=== PATIENT | male | born 1950 | race Asian ===

== ENCOUNTER 2018-12-23 13:22 | Inpatient (IN) | payer MEDICARE, OTHER ==
[~2018-12-23] VITALS: Ht 167.6 cm; Wt 78.5 kg
[2018-12-23] VITALS (8 sets, daily range): BP systolic 90–137; BP diastolic 48–74
[~2018-12-23 13:22] MED LIST: PIOG30TA10 PO
--- NOTE | 2018-12-23 13:37 | NUR ---
BIBWIFE, FROM HOME, C/O DIARRHEA x 3 TODAY, NOTICED BLOOD AND FAINTED, DENIES ANY PAIN. TO ER BED 10, HOOKED TO MONITOR, CHANGED TO GOWN, PROVIDED W WARM BLANKET, AWAITING MD FIELDS. FAMILY AT BEDSIDE
[2018-12-23 14:02] LABS: BASOPHILS % (AUTO) 0.2 % (0.0-2.0); EOSINOPHILS % (AUTO) 0.3 % (0.0-6.0); HEMATOCRIT 34 % (39-51); HEMOGLOBIN 11.3 g/dL (13.5-17.5); LYMPHOCYTES % (AUTO) 10.2 % (20.0-44.0); MEAN CORPUSCULAR HGB CONC 34 g/dl (31.0-36.0); MEAN CORPUSCULAR VOLUME 87 fL (80-96); MONOCYTES # (AUTO) 0.3 /CMM (0.1-1.30); MONOCYTES % (AUTO) 3.5 % (2.0-12.0); NEUTROPHILS # (AUTO) 8.6 /CMM (1.8-8.9); NEUTROPHILS % (AUTO) 85.8 % (43.0-81.0); PLATELET COUNT (AUTO) 178 /CMM (150-450); RED BLOOD CELL COUNT(AUTO) 3.88 MIL/uL (4.5-6.0); WHITE BLOOD COUNT (AUTO) 10.1 K/uL (4.3-11.0)
[2018-12-23 14:10] LABS: CALCIUM, SERUM 8.4 mg/dL (8.5-10.1); CREATININE 1.1 mg/dL (0.6-1.3); POTASSIUM 3.9 mmol/L (3.5-5.1)
--- NOTE | 2018-12-23 14:10 | NUR ---
DR CARY AT BEDSIDE FOR EVAL.
--- NOTE | 2018-12-23 14:22 | NUR ---
PT WENT TO RESTROOM, AMBULATORY, FELT DIZZY, FELL ONTO GROUND ON HIS KNEES, WAS ABLE TO HOLD PATIENT FROM HIS BACK, - HEAD TRAUMA, NOTED WITH LARGE AMOUNT OF RECTAL BLEEDING, TECH BROUGHT BACK PATIENT INTO BED. IMEEDIATELY STARTED IVP ON LAC 18G, FLUIDS AND ZOFRAN 4MG IVP ADMINISTERED ORDERED.
[2018-12-23] MEDS ORDERED: ONDANSETRON HCL/PF 4 MG/2 ML VIAL IVP ONE (14:30)
[2018-12-23] MEDS ORDERED: IV NS 0.9% 1,000 ML BAG IV ONE ×3 (14:30)
[2018-12-23] MEDS ORDERED: ONDANSETRON HCL/PF 4 MG/2 ML VIAL ONE (14:31)
[2018-12-23 14:36] LABS: ALBUMIN 3.3 g/dL (3.4-5.0); BILIRUBIN,DIRECT 0.2 mg/dL (0.0-0.2); BILIRUBIN,TOTAL 0.7 mg/dL (0.2-1.0); TOTAL PROTEIN, SERUM 6.3 g/dL (6.4-8.2)
[2018-12-23] MEDS ORDERED: SILD50TA PO (14:44)
[2018-12-23] MEDS ORDERED: DONE10TA44 PO (14:44)
--- NOTE | 2018-12-23 15:28 | NUR ---
WHEELED OUT VIA [facility] FOR CT SCAN.
--- NOTE | 2018-12-23 16:20 | NUR ---
CALLED FOR ICU BED
--- NOTE | 2018-12-23 18:03 | NUR ---
REPORT GIVEN TO SPENCER MENDEZ OF ICU
--- NOTE | 2018-12-23 18:12 | NUR ---
RECEIVED TELEPHONE ORDERS FROM DR SCHULTZ. NOTED. ENDORSED TO ICU NURSE PARUL
--- NOTE | 2018-12-23 18:20 | NUR ---
ICU/RN: Pt received from ER via [facility], blood soaked sheets and pants noted with clots. Pt VSS, ST with BBBs on monitor. Pt denies dizziness, neurological symptoms, history of GIB. Oriented pt to unit; urinal provided. Pt currently wearing dentures. Call light within reach.
[2018-12-23] MEDS: IV D5/ 0.9% NACL 1,000 ML IV PRN (19:27)
--- NOTE | 2018-12-23 19:30 | NUR ---
ICU/RN: REPORT ENDORSED TO NIGHT NURSE FOR MARCY. ALL NEEDS ATTENDED TO, SAFETY MEASURES TAKEN. BED IN LOW POSITION, SIDE RAILS UP, CALL LIGHT WITHIN REACH.
--- NOTE | 2018-12-23 19:30 | NUR ---
CASINO INVESTIGATOR NOTE RECEIVED PT AWAKE AND ALERT. ABLE TO VERBALIZE NEEDS. ON 2L OF O2 VIA NC AND SATURATING WELL. BREATHING REGULAR AND UNLABORED. NO C/O PAIN OR DISCOMFORT NOTED. NO BLEEDING NOTED AT THIS TIME. PT TO REMAIN NPO EXCEPT FOR ICE CHIPS. TELE-SR. IVS IN PLACE CLEAN, PATENT AND FLUSHING WELL. CALL LIGHT WITHIN REACH. WILL MONITOR.
[2018-12-23] MEDS ORDERED: PEG 3350/NA SULF,BICARB,CL/KCL 4,000 ML BOTTLE PO ONE (21:00)
[2018-12-23] MEDS: NEXIUM 40 MG VIAL IV SCH (21:04)
--- NOTE | 2018-12-23 21:30 | NUR ---
TAR KETTLE RUNNER NOTE RECEIVED CONSENT FOR COLONOSCOPY/EGD/ANESTHESIA BY PT. NOTIFIED FLORENCIO OF PROCEDURE PER PT REQUEST. STARTED PT ON GOLYTELY.
[2018-12-23] MEDS ORDERED: PEG 3350/NA SULF,BICARB,CL/KCL 4,000 ML BOTTLE ONE (21:39)
[2018-12-23 22:51] LABS: HEMOGLOBIN 8.3 g/dL (13.5-17.5)
--- NOTE | 2018-12-23 23:59 | NUR ---
STAFFING AND SCHEDULING COORDINATOR NOTE NOTIFIED DR SCHULTZ H/H 8.08/12. WITH ORDERS TO TRANSFUSE 1 UNIT PRBC. CONSENT OBTAINED ORDERS NOTED AND CARRIED OUT.
[2018-12-24] VITALS (27 sets, daily range): BP systolic 89–129; BP diastolic 39–68
[2018-12-24] MEDS: IV D5/ 0.9% NACL 1,000 ML IV PRN (04:34)
[2018-12-24] MEDS ORDERED: SORBITOL SOLUTION 30 ML PO ONE (06:00)
[2018-12-24 06:34] LABS: BASOPHILS # (AUTO) 0.1 /CMM (0.0-0.2); BASOPHILS % (AUTO) 0.5 % (0.0-2.0); EOSINOPHILS % (AUTO) 0.4 % (0.0-6.0); HEMATOCRIT 27 % (39-51); HEMOGLOBIN 9.2 g/dL (13.5-17.5); MEAN CORPUSCULAR HGB CONC 34 g/dl (31.0-36.0); MEAN CORPUSCULAR VOLUME 87 fL (80-96); MONOCYTES # (AUTO) 0.6 /CMM (0.1-1.30); MONOCYTES % (AUTO) 5.7 % (2.0-12.0); NEUTROPHILS # (AUTO) 9.1 /CMM (1.8-8.9); NEUTROPHILS % (AUTO) 84.4 % (43.0-81.0); PLATELET COUNT (AUTO) 129 /CMM (150-450); RED BLOOD CELL COUNT(AUTO) 3.09 MIL/uL (4.5-6.0); WHITE BLOOD COUNT (AUTO) 10.8 K/uL (4.3-11.0)
[2018-12-24 07:09] LABS: CALCIUM, SERUM 7.6 mg/dL (8.5-10.1); CREATININE 0.9 mg/dL (0.6-1.3); POTASSIUM 3.4 mmol/L (3.5-5.1)
--- NOTE | 2018-12-24 07:55 | NUR ---
ICU/RN OFF TO OR - EGD & COLONOSCOPY PT SEEN & EXAMINED BY DR. VILLAVICENCIO AND OR STAFF CAME TO PICK-UP PT FOR EGD AND COLOSCOPY PROCEDURE IN STABLE CONDITION.
[2018-12-24] MEDS ORDERED: ANESTHESIA TRAY IN PYXIS 1 EA TRAY MC ONE (07:57)
--- NOTE | 2018-12-24 09:18 | NUR ---
ICU/RN BACK TO ICU PT RETURNED TO ICU VIA BED IN STABLE CONDITION. PER OR NURSE NO ACTIVE FOUND. PT'S AT BEDSIDE, DR. TIDWELL TEXT TO CALL ICU TO SPEAK TO PT'S . DR. VILLAVICENCIO NOTIFIED OF PT'S RETURN ORDERED TO RESUME DIET, NOTED AND CARRIED.
[2018-12-24] MEDS: NEXIUM 40 MG VIAL IV SCH (09:27)
[2018-12-24] MEDS: POTASSIUM CL. PREMIX PERIPHER. 50 ML IV SCH ×6 (09:28→16:10)
--- NOTE | 2018-12-24 11:00 | NUR ---
ICU/RN NO ACTIVE BLEEDING PT HAS 2 BM NOTED NO ACTIVE BLEEDING, RESTING COMFORTABLY WITH AT BEDSIDE. MONITORING CONTINUED.
--- NOTE | 2018-12-24 12:18 | NUR ---
ICU/RN ROUNDS - DR. SALGUERO PT SEEN & EXAMINED BY DR. SALGUERO. NO NEW ORDER RECEIVED. ON GOING MONITORING.
[2018-12-24 13:16] LABS: THYROID STIMULATING HORMONE 0.199 uIU/mL (0.358-3.74)
[2018-12-24 13:34] LABS: MAGNESIUM 1.4 mg/dL (1.8-2.4); PHOSPHORUS 1.8 mg/dL (2.5-4.9)
--- NOTE | 2018-12-24 16:50 | NUR ---
DECKHANDFEATHEREDGER AND REDUCER MACHINE FROM ICU PT ARRIVED TO TELE UNIT IN STABLE CONDITION, RECEIVED REPORT FROM VANESSA CASTILLO FROM ICU. PT IS A/O X2, AFEBRILE. RESPIRATIONS ARE EVEN AND UNLABORED, NOT IN ANY ACUTE DISTRESS NOTED. PT DENIES ANY PAIN AT THIS TIME, NO S/O SOB, N/V. PUPILS ARE REACTIVE TO LIGHT, BILATERAL HAND SOLAR ELECTRIC INSTALLER ARE STRONG AND EQUAL. ABDOMEN IS SOFT AND NONDISTENDED, BOWEL SOUNDS ARE PRESENT IN ALL 4 QUADRANTS UPON AUSCULTATION. DENIES ANY BLADDER DISCOMFORT. IV ACCESS TO LAC G22 INTACT, NO INFILTRATION NOTED. DRESSING KEPT CLEAN AND DRY. AT BEDSIDE. SAFETY MEASURES ARE IN PLACE. INSTRUCTED PT TO USE CALL LIGHT WHEN ASSISTANCE IS NEEDED, CALL LIGHT IS LEFT WITHIN REACH. WILL MONITOR THROUGHOUT SHIFT FOR CONTINUITY OF CARE.
--- NOTE | 2018-12-24 16:55 | NUR ---
ICU/TUBING TESTER OF CARE PT LEFT ICU VIA IN STABLE CONDITION WHEELCHAIR DOWNGRADED TO TELEMETRY, ROOM 324#2, PT ENDORSED TO TELE NURSE DEMARCUS TO CONTINUE CARE.
--- NOTE | 2018-12-24 17:30 | NUR ---
APPLIANCE REPAIR TECHNICIAN NOTES-- CALLED DR. VILLAVICENCIO TO RELAY MG AND PHOS RESULTS. WAITING A CALL BACK.
--- NOTE | 2018-12-24 17:57 | NUR ---
DIRECTOR OF COMMUNICATIONS NOTES-- RECEIVED A CALL BACK FROM DR. VILLAVICENCIO W/ ORDERS TO CONTINUE ARICEPT AND ACTOS, NEW ORDERS FOR NEUTROPHOS 1 PACKET BID X1 DAY, MAGNESIUM OXIDE 400MG PO X1. READ BACK AND VERIFIED, NOTED AND CARRIED OUT.
[2018-12-24] MEDS ORDERED: NEUTRA PHOS 1 POWD.PACKET PO ONE (18:00)
[2018-12-24] MEDS ORDERED: MAGNESIUM OXIDE 400 MG TABLET PO ONE (18:00)
[2018-12-24] MEDS: PIOGLITAZONE HCL 15 MG TABLET PO SCH (18:22)
[2018-12-24] MEDS: DONEPEZIL 5 MG TABLET PO SCH (18:22)
--- NOTE | 2018-12-24 18:39 | NUR ---
MOTORCYCLE MECHANIC APPRENTICE CLOSING NOTES ALL DUE MEDS GIVEN, NEEDS MET AND RENDERED. PT IS A/O X2, AFEBRILE. RESPIRATIONS ARE EVEN AND UNLABORED, NOT IN ANY ACUTE DISTRESS NOTED. DENIES ANY PAIN, SOB, N/V. IV SITE TO RAC G22 INTACT, NO INFILTRATION NOTED. DRESSING KEPT CLEAN AND DRY. AT BEDSIDE. PT HAD A BM WITH NO BLEEDING. ATE DINNER 100%. SAFETY MEASURES ARE IN PLACE. REMINDED PT TO USE CALL LIGHT WHEN ASSISTANCE IS NEEDED, CALL LIGHT IS LEFT WITHIN REACH.
--- NOTE | 2018-12-24 20:00 | NUR ---
MS MENDEZ NOTES RECEIVED PATIENT AWAKE AND CALM IN BED WITH NO DISTRESS NOTED. CALL LIGHT WITHIN REACH. SITTER AT BEDSIDE. NO C/O PAIN OR DISCOMFORT. PERIPHERAL LINE INTACT AND PATENT. BED IN LOW LOCK SETTING. ALL BELONGINGS KEPT NEAR BEDSIDE. WILL CONTINUE TO MONITOR. Addendum: 12/25/18 at 0622 by JOANN SHANKAR RN *TONA MENDEZ NOTES
[2018-12-24] MEDS: PANTOPRAZOLE 40 MG TABLET.DR PO SCH (20:34)
[2018-12-24] MEDS ORDERED: DONEPEZIL 5 MG TABLET PO SCH (22:00)
[2018-12-25] VITALS: BP 100/67
[2018-12-25 04:46] VITALS: BP 117/65
--- NOTE | 2018-12-25 06:16 | NUR ---
MS MENDEZ NOTES PATIENT ASLEEP IN BED WITH NO DISTRESS NOTED. CALL LIGHT WITHIN REACH. ALL DUE MEDS GIVEN ORDERED WITH NO ASE. NO C/O PAIN OF DISCOMFORT. PERIPHERAL LINE INTACT AND PATENT. PATIENT CALM AND COOPERATIVE WITH NURSING CARE DURING SHIFT. BED IN LOW LOCK SETTING. ALL BELONGINGS KEPT NEAR BEDSIDE. WILL ENDORSE TO ONCOMING SHIFT. Addendum: 12/25/18 at 0622 by JOANN SHANKAR RN *TONA MENDEZ NOTES
[2018-12-25 06:27] LABS: BASOPHILS % (AUTO) 0.5 % (0.0-2.0); EOSINOPHILS % (AUTO) 0.7 % (0.0-6.0); HEMATOCRIT 24 % (39-51); HEMOGLOBIN 8.2 g/dL (13.5-17.5); LYMPHOCYTES # (AUTO) 1.3 /CMM (0.8-4.8); LYMPHOCYTES % (AUTO) 19.8 % (20.0-44.0); MEAN CORPUSCULAR HGB CONC 34 g/dl (31.0-36.0); MEAN CORPUSCULAR VOLUME 87 fL (80-96); MONOCYTES # (AUTO) 0.4 /CMM (0.1-1.30); NEUTROPHILS # (AUTO) 4.6 /CMM (1.8-8.9); PLATELET COUNT (AUTO) 115 /CMM (150-450); WHITE BLOOD COUNT (AUTO) 6.4 K/uL (4.3-11.0)
[2018-12-25 06:46] LABS: ALBUMIN 2.8 g/dL (3.4-5.0); BILIRUBIN,TOTAL 1.1 mg/dL (0.2-1.0); CREATININE 0.9 mg/dL (0.6-1.3); MAGNESIUM 1.6 mg/dL (1.8-2.4); PHOSPHORUS 1.6 mg/dL (2.5-4.9); POTASSIUM 3.4 mmol/L (3.5-5.1); TOTAL PROTEIN, SERUM 5.4 g/dL (6.4-8.2)
--- NOTE | 2018-12-25 07:34 | NUR ---
COMPETITIVE INTELLIGENCE MANAGER OPENING NOTES RECEIVED PATIENT SITTING IN BED. PATIENT IN NO ACUTE DISTRESS. NO SOB NOTED. PATIENT BREATHING IS EVEN AND UNLABORED. PATIENT MAINTAINED ON A 1:1 SITTER. PATIENT ON CARDIAC MONITORING, SINUS TACHYCARDIA 100. SAFETY PRECAUTIONS IN PLACE. PATIENT BED IS LOCKED AND IN LOWEST POSITION. CALL LIGHT WITHIN REACH. WILL CONTINUE TO MONITOR.
[2018-12-25 08:00] VITALS: BP 98/70
[2018-12-25] MEDS ORDERED: NEUTRA PHOS 1 POWD.PACKET PO SCH (08:00)
[2018-12-25] MEDS ORDERED: POTASSIUM CHLORIDE 20 MEQ TAB.PRT.SR PO SCH (08:30)
[2018-12-25] MEDS: Magnesium 1GM/D5W 100ML PREMIX 100 ML IV SCH ×2 (08:56→10:26)
[2018-12-25] MEDS: DONEPEZIL 5 MG TABLET PO SCH (08:56)
[2018-12-25] MEDS: PANTOPRAZOLE 40 MG TABLET.DR PO SCH (08:56)
[2018-12-25] MEDS: PIOGLITAZONE HCL 15 MG TABLET PO SCH (08:59)
[2018-12-25] MEDS ORDERED: DONEPEZIL 5 MG TABLET PO SCH (09:00)
[2018-12-25] MEDS ORDERED: K PHOS NEUTRAL 250 MG TABLET PO SCH ×2 (09:00)
[2018-12-25] MEDS ORDERED: PIOGLITAZONE HCL 15 MG TABLET PO SCH (09:00)
[2018-12-25] MEDS ORDERED: MAGNESIUM OXIDE 400 MG TABLET PO SCH (09:00)
[2018-12-25] MEDS ORDERED: NEUTRA PHOS 1 POWD.PACKET PO ONE (09:00)
--- NOTE | 2018-12-25 17:00 | NUR ---
MS MAINTENANCE REPAIRER NOTE PATIENT MEDICALLY STABLE. PATIENT VITAL SIGNS WNL. PATIENT BREATHING IS EVEN AND UNLABORED. PATIENT BREATHING ON ROOM AIR SATURATING >95% SPO2. PATIENT IN NO ACUTE DISTRESS. NO SOB NOTED. PATIENT'S WAS ABLE TO SPEAK TO DR. VILLAVICENCIO AND VERBALIZES UNDERSTANDING FROM DOCTOR ABOUT DISCHARGE. PROVIDED DC INSTRUCTIONS TO PATIENT AND . PATIENT AND VERBALIZE UNDERSTANDING. PATIENT IV REMOVED. ID BAND REMOVED. PATIENT SKIN ASSESSED. NO WOUNDS INSPECTED. NO NEW SKIN BREAKDOWN NOTED. PATIENT HAS ALL BELONGINGS WITH HIM AND . PATIENT SIGNED BELONGINGS LIST AND IN CHART. PATIENT GOING BACK HOME BY CAR WITH . ALL NURSING NEEDS MET. PATIENT KEPT CLEAN, DRY, REPOSITIONED, AND COMFORTABLE THROUGHOUT SHIFT. MD MADE AWARE OF DISCHARGE.
[2018-12-26] MEDS ORDERED: CT SWABBABLE VALVE TRANS SET 1 EA INFUS.SET MC ONE (13:38)
[2018-12-26] MEDS ORDERED: IV NS 0.9% 250 ML IV ONE (13:38)
[2018-12-26] MEDS ORDERED: IOHEXOL-300 100 ML VIAL IV ONE (13:38)
== END 2018-12-25 17:12 | disposition home or self-care (01) | DRG 392 ==
LOC: ER 13:23 → ICU 17:21 → TELE 12-24 16:30 → MED 12-25 11:48
PROVIDERS: ADMIT Internal Medicine; ATTEND Internal Medicine
PROC: 30233N1 Transfusion of Nonautologous Red Blood Cells into Peripheral Vein, Percutaneous Approach (ICD-10-PCS; 2018-12-23)
PROC: 0DJD8ZZ Inspection of Lower Intestinal Tract, Via Natural or Artificial Opening Endoscopic (ICD-10-PCS; principal; 2018-12-24)
PROC: 0DJD8ZZ Inspection of Lower Intestinal Tract, Via Natural or Artificial Opening Endoscopic (ICD-10-PCS; 2018-12-24)
DX: K57.30 Diverticulosis of large intestine without perforation or abscess without bleeding (principal); D62 Acute posthemorrhagic anemia; J98.11 Atelectasis; K64.8 Other hemorrhoids; G30.9 Alzheimer's disease, unspecified; F02.80 Dementia in other diseases classified elsewhere, unspecified severity, without behavioral disturbance, psychotic disturbance, mood disturbance, and anxiety; D64.9 Anemia, unspecified; E11.9 Type 2 diabetes mellitus without complications; Z79.84 Long term (current) use of oral hypoglycemic drugs; F32.9 Major depressive disorder, single episode, unspecified; Z79.899 Other long term (current) drug therapy; K44.9 Diaphragmatic hernia without obstruction or gangrene; Q40.3 Congenital malformation of stomach, unspecified; K21.0 Gastro-esophageal reflux disease with esophagitis
CPT/HCPCS: 36415; 71045-TC; 80048-TC; 80053-TC; 80061-TC; 80076-TC; 82728-TC; 82962-TC; 83540-TC; 83690-TC; 83735-TC; 84100-TC; 84439-TC; 84443-TC; 85025-TC; 85027-TC; 85730-TC; 86850-TC; 86921-TC; 87081-TC; 93307-TC; 93880-TC; A4570; A6403; G0378; J2405; J2704; J3475; J3480; J3490; J7030; J7042; J7050; P9016-BL; Q9967

== ENCOUNTER 2018-12-25 18:24 | Inpatient (IN) | payer OTHER ==
[~2018-12-25] VITALS: Ht 167.6 cm; Wt 78.5 kg
[~2018-12-25 18:24] MED LIST changes: +DONE10TA44 PO; +SILD50TA PO
[2018-12-25 18:59] LABS: BASOPHILS # (AUTO) 0.1 /CMM (0.0-0.2); BASOPHILS % (AUTO) 0.7 % (0.0-2.0); EOSINOPHILS % (AUTO) 1.2 % (0.0-6.0); HEMATOCRIT 24 % (39-51); HEMOGLOBIN 8.1 g/dL (13.5-17.5); LYMPHOCYTES # (AUTO) 2.3 /CMM (0.8-4.8); LYMPHOCYTES % (AUTO) 27.8 % (20.0-44.0); MEAN CORPUSCULAR HGB CONC 34 g/dl (31.0-36.0); MEAN CORPUSCULAR VOLUME 88 fL (80-96); MONOCYTES # (AUTO) 0.6 /CMM (0.1-1.30); MONOCYTES % (AUTO) 7.2 % (2.0-12.0); NEUTROPHILS # (AUTO) 5.2 /CMM (1.8-8.9); NEUTROPHILS % (AUTO) 63.1 % (43.0-81.0); PLATELET COUNT (AUTO) 170 /CMM (150-450); RED BLOOD CELL COUNT(AUTO) 2.72 MIL/uL (4.5-6.0); WHITE BLOOD COUNT (AUTO) 8.3 K/uL (4.3-11.0)
[2018-12-25] MEDS ORDERED: IV NS 0.9% 1,000 ML BAG IV ONE (19:00)
--- NOTE | 2018-12-25 19:02 | NUR ---
WEAK AND DIZZY, BLOOD IN STOOL NOTED X 2. D/C'D EARLIER. C/O RECTAL PAIN. PT AAOX4, VSS. RR EVEN & UNLABORED. DENIES CP, SOB @ THIS TIME. SEEN & EVAL'D BY DR. CARY. WILL CONT TO MONITOR.
[2018-12-25 19:08] LABS: CALCIUM, SERUM 7.9 mg/dL (8.5-10.1); POTASSIUM 3.3 mmol/L (3.5-5.1)
[2018-12-25] MEDS ORDERED: ONDANSETRON HCL/PF 4 MG/2 ML VIAL IVP ONE (19:30)
[2018-12-25] MEDS ORDERED: MORPHINE SULFATE INJ 2 MG/ML DISP.SYRIN IV ONE (19:30)
[2018-12-25] MEDS ORDERED: ONDANSETRON HCL/PF 4 MG/2 ML VIAL ONE (19:49)
[2018-12-25] MEDS ORDERED: MORPHINE SULFATE INJ 2 MG/ML DISP.SYRIN ONE (19:49)
--- NOTE | 2018-12-25 19:56 | NUR ---
PT RESTING COMFORTABLY. REFUSED PAIN/NAUSEA MED, ERMD AWARE. DENIES CP, SOB, DIZZINESS, ABD PAIN, NAUSEA @ THIS TIME. WILL CONT TO MONITOR.
[2018-12-25] MEDS ORDERED: POTASSIUM CHLORIDE 20 MEQ TAB.PRT.SR PO ONE ×2 (21:30→23:48)
[2018-12-25] MEDS ORDERED: HYDROCODONE/APAP 5/325MG 1 EACH TABLET PO PRN (21:30)
[2018-12-25] MEDS ORDERED: MAG HYDROX/AL HYDROX/SIMETH 30 ML UDC PO PRN (21:30)
[2018-12-25] MEDS ORDERED: ONDANSETRON HCL/PF 4 MG/2 ML VIAL IVP PRN (21:30)
[2018-12-25] MEDS ORDERED: MAGNESIUM HYDROXIDE 30 ML UDC PO PRN (21:30)
[2018-12-25] MEDS ORDERED: ZOLPIDEM TARTRATE 5 MG TABLET PO PRN (21:30)
[2018-12-25] MEDS ORDERED: ACETAMINOPHEN 325 MG TABLET PO PRN (21:30)
[2018-12-25] MEDS ORDERED: Z GUARD REMEDY 2 OZ OINT TP PRN (21:30)
--- NOTE | 2018-12-25 21:39 | NUR ---
REPORT GIVEN TO VANESSA MIRELES FOR MARCY.
--- NOTE | 2018-12-25 22:03 | NUR ---
PLASTIC BUBBLE PACKER ADMISSION NOTES NOTES RECEIVED PATIENT FROM ER. DX. GI BLEED; ANEMIA. WAS DISCHARGED TODAY AT 5:30PM. PATIENT IS ALERT AND ORIENTED X3, VERBALLY RESPONSIVE, ABLE TO MAKE NEEDS KNOWN. BELARUSIAN SPEAKER BUT CAN UNDERSTAND KHMER. FAMILY IS AT BEDSIDE. BREATHING EVEN AND UNLABORED. NO SOB NOTED. TOLERATING ROOM AIR. CURRENTLY WITH NO COMPLAINTS OF PAIN OR DISCOMFORT. IV ON LEFT AC INTACT AND PATENT. SKIN DRY AND WARM TO TOUCH. AFEBRILE. SKIN ASSESSMENT RENDERED WITH NO SKIN ISSUES FOUND. ORIENTED TO THE USE OF UNIT AMENITIES. INSTRUCTED ON THE USE OF CALL LIGHT. URINAL PROVIDED AT BEDSIDE. BELONGINGS ACCOUNTED FOR. ALL OTHER NEEDS ATTENDED TO. SAFETY MEASURES IN PLACE. CALL LIGHT WITHIN REACH. WILL CONTINUE TO MONITOR. Addendum: 12/26/18 at 0031 by [facility] RN SR-ST ON TELE MONITOR WITH HIGHEST RATE 107.
[2018-12-25 22:15] VITALS: BP 115/68
[2018-12-25] MEDS: IV D5/0.45 NACL 1,000 ML IV PRN (22:45)
--- NOTE | 2018-12-25 23:43 | NUR ---
SHERIFF DEPUTY NOTES PER DR. OBINNA RESENDIZ (ENGRAVER BLOCK FOR DR. SALTER), CONTINUE ALL ADMISSION ORDERS MADE BY DR. COLLINS AND PATIENT OK TO BE NPO EXCEPT MEDS. ORDER NOTED AND CARRIED OUT. WILL CONTINUE TO MONITOR.
[2018-12-26] VITALS (25 sets, daily range): BP systolic 90–137; BP diastolic 52–101
--- NOTE | 2018-12-26 00:10 | NUR ---
RN NOTES PATIENT LATEST HGB 7.9 AND HEMATOCRIT 24, NO ACTIVE BLEEDING AT THIS TIME. WILL CHECKED THE NEXT H/H TODAY.
--- NOTE | 2018-12-26 03:29 | NUR ---
THROUGH FREIGHT ENGINEER NOTES PATIENT RESTING IN BED. DENIES ANY PAIN. DENIES N/V. DENIES DIZZINESS. SR ON TELE MONITOR. WILL CONTINUE TO MONITOR.
--- NOTE | 2018-12-26 06:49 | NUR ---
PROJECT ENGINEER CHEMICALS CLOSING NOTES PATIENT RESTING IN BED. NO ACUTE CHANGES THROUGHOUT SHIFT. NO ACTIVE BLEEDING NOTED. NO BM. NO BLOOD IN URINE EITHER. DENIES PAIN OR DISCOMFORT. BREATHING EVEN AND UNLABORED. NO SOB NOTED. SR ON TELE MONITOR. TOLERATING ROOM AIR. IV ON LEFT AC INTACT AND PATENT WITH IVF INFUSING. ALL OTHER NEEDS ATTENDED TO. SAFETY MEASURES IN PLACE. CALL LIGHT WITHIN REACH. WILL ENDORSE TO ONCOMING NURSE FOR MARCY.
--- NOTE | 2018-12-26 07:10 | NUR ---
MS RN NOTES PATIENT IN BED EYES CLOSED, EASY TO AROUSE. RESPOND TO VERBAL AND TACTILE STIMULI. NO ACUTE DISTRESS NOTED. BREATHING UNLABORED. NO SOB NOTED. IV ACCESS PATENT AND INTACT, NO REDNESS OR SWELLING NOTED. SAFETY MEASURES IN PLACE. CALL LIGHT WITHIN REACH. WILL CONTINUE TO MONITOR ACCORDINGLY.
[2018-12-26 07:37] LABS: BASOPHILS % (AUTO) 0.5 % (0.0-2.0); EOSINOPHILS % (AUTO) 1.6 % (0.0-6.0); LYMPHOCYTES # (AUTO) 1.6 /CMM (0.8-4.8); LYMPHOCYTES % (AUTO) 27.4 % (20.0-44.0); MEAN CORPUSCULAR HGB CONC 34 g/dl (31.0-36.0); MEAN CORPUSCULAR VOLUME 87 fL (80-96); MONOCYTES # (AUTO) 0.4 /CMM (0.1-1.30); NEUTROPHILS # (AUTO) 3.7 /CMM (1.8-8.9); NEUTROPHILS % (AUTO) 63.5 % (43.0-81.0); PLATELET COUNT (AUTO) 111 /CMM (150-450); WHITE BLOOD COUNT (AUTO) 5.8 K/uL (4.3-11.0)
[2018-12-26 08:32] LABS: RED BLOOD CELL COUNT(AUTO) 1.99 MIL/uL (4.5-6.0)
[2018-12-26 08:36] LABS: HEMATOCRIT 17 % (39-51); HEMOGLOBIN 5.9 g/dL (13.5-17.5)
--- NOTE | 2018-12-26 09:29 | NUR ---
COMPLIANCE REPRESENTATIVE NOTES RECEIVED NEW ORDERS FROM DR PRAVIN VILLAVICENCIO TO GIVE 1 UNIT PRBC THEN RECHECK HGB /HCT 1 HOUR AFTER ADMINISTRATION , THEN GIVE ANOTHER 1 UNIT PRBC AND RECHECK HGB /HCT 1 HOUR AFTER ADMINISTRATION.
[2018-12-26 09:38] LABS: CALCIUM, SERUM 7.5 mg/dL (8.5-10.1); CREATININE 0.8 mg/dL (0.6-1.3); PHOSPHORUS 1.8 mg/dL (2.5-4.9)
[2018-12-26 09:39] LABS: BAND % (MANUAL) 3 % (0.0-5.0); EOSINOPHILS % (MANUAL) 3 % (0-4); LYMPHOCYTES % (MANUAL) 27 % (16-48); MONOCYTES % (MANUAL) 7 % (0-11.0); NEUTROPHILS % (MANUAL) 60 (42-76)
[2018-12-26] MEDS: NEXIUM 40 MG VIAL IV SCH (09:55)
[2018-12-26 10:00] LABS: POTASSIUM 3.7 mmol/L (3.5-5.1)
--- NOTE | 2018-12-26 10:00 | NUR ---
REAL ESTATE TRANSACTION COORDINATOR NOTES FOLLOWED UP WITH LABORATORY REGARDING BLOOD, SAID STILL BEING PREPARED AND WILL CALL ONCE BLOOD IS AVALABLE.
[2018-12-26] MEDS ORDERED: Sodium Phosphate 7.5 MMOL in IV D5W 100 ML IV ONE (12:00)
--- NOTE | 2018-12-26 12:24 | NUR ---
MS RN NOTES SEEN AND EVALUATED BY DR PRAVIN VILLAVICENCIO SPOKE WITH AND DAUGHTER AT BEDSIDE. MD AWARE OF HOME MEDICATIONS RECONCILIATION NEEDS TO BE REVIEWED, MD SAID HE'S NOT ORDERING PATIENT'S HOME MEDICATIONS AT THIS TIME.
--- NOTE | 2018-12-26 13:32 | NUR ---
CLINICAL STAFF ANESTHESIOLOGIST NOTES CLARIFIED CT ABDOMEN PELVIS WITHOUT CONTRAST ORDER WITH DR PRAVIN VILLAVICENCIO WITH ORDERS TO CHANGE PREVIOUS ORDER TO CT ABDOMEN PELVIS WITH AND WITHOUT CONTRAST, NOTED AND CARRIED OUT.
--- NOTE | 2018-12-26 13:38 | NUR ---
TOWER OPERATOR NOTES PATIENT TRANSPORTED FOR CT TAKEN BY RIMMA IN STABLE CONDITION , VITAL SIGNS WITHIN NORMAL LIMITS.
--- NOTE | 2018-12-26 14:40 | NUR ---
GINGER FARMER NOTES PATIENT CAME BACK TO THE UNIT FROM CT IN STABLE CONDITION. NO ACUTE DISTRESS NOTED. BREATHING UNLABORED.
--- NOTE | 2018-12-26 15:04 | NUR ---
RESEARCH ENGINEER NOTES STARTED BLOOD TRANSFUSION, PATIENT WITH STABLE VITAL SIGNS. WILL CONTINUE TO MONITOR PATIENT.
--- NOTE | 2018-12-26 15:19 | NUR ---
SINKER PULLER NOTES PATIENT WITH STABLE VITAL SIGNS, NO ACUTE DISTRESS NOTED. NO ADVERSE REACTION TO BLOOD TRANSFUSION NOTED. WILL CONTINUE TO MONITOR PATIENT.
--- NOTE | 2018-12-26 16:00 | NUR ---
MS RN NOTES PATIENT SEEN BY DR PRAVIN VILLAVICENCIO AGAIN, AT BEDSIDE. MD AWARE OF CT RESULT.
--- NOTE | 2018-12-26 16:04 | NUR ---
CLINICAL RN LIAISON NOTES BLOOD TRANSFUSION ON GOING. PATIENT WITH STABLE VITAL SIGNS, NO ACUTE DISTRESS NOTED. NO ADVERSE REACTION TO BLOOD TRANSFUSION NOTED. WILL CONTINUE TO MONITOR PATIENT.
--- NOTE | 2018-12-26 16:32 | NUR ---
RESIDENTIAL SALES NOTES SEEN AND EVALUATED BY DR TIDWELL WITH ORDERS TO GIVE 2 UNITS PRBC TOTAL AND CHECK HGB/ HCT 1 HOUR AFTER
--- NOTE | 2018-12-26 17:10 | NUR ---
SILK SCREEN LAYOUT DRAFTER NOTES PATIENT NOTED WITH ELAVATED PULSE RATE AND COMPLAINT OF ABDOMINAL CRAMPS AND REQUESTED TO GO TO THE BATHROOM. BEDPAN WAS PLACED , PATIENT HAD A BOWEL MOVEMENT AND NOTED FRESH BLOODY STOOL. NOTIFIED DR TIDWELL AND AND DR PRAVIN STRICKLAND MADE AWARE. PER DR MORE IF NOTED ANOTHER BLOOD STOOL ,TRANSFER PATIENT TO ICU.
--- NOTE | 2018-12-26 17:15 | NUR ---
HEAD CLEANING PORTER NOTES PATIENT SAID HE NEEDS TO GO TO THE BATHROOM AGAIN, PLACED BED GLOVER AND NOTED ANOTHER BLOODY STOOL. PATIENT WITH STABLE VITAL SIGNS. BREATHING UNLABORED NO SOB NOTED.
--- NOTE | 2018-12-26 17:20 | NUR ---
PREVENTIVE MAINTENANCE COORDINATOR NOTES PATIENT TRANSFER TO ICU ROOM 260 VIA ACLS PROTOCOL WITH STABLE VITAL SIGNS. REPORT GIVEN TO EDWIGE AT BEDSIDE. ALERT ORIENTED X 3. BREATHING UNLABORED. NO SOB NOTED. WITH ON GOING BLOOD TRANSFUSION. ALL BELONGINGS TRANSFER WITH THE PATIENT. AT BEDSIDE.
--- NOTE | 2018-12-26 17:45 | NUR ---
PATIENT TRANSFERRED FROM TELE FLOOR SECONDARY TO ACTIVE LGIB. WITH ONGOING 1ST UNIT OF PRBC UPON TRANSFER. PATIENT AWAKE/ALERT/ORIENTED FOLLOWING SIMPLE COMMANDS. NO ACUTE DISTRESS NOTED. NOTED WITH BLOODY STOOLS UPON TRANSFER. BP STABLE AT THIS TIME.
--- NOTE | 2018-12-26 19:15 | NUR ---
IST UNIT PRBC COMPLETED. NO A/R NOTED.
--- NOTE | 2018-12-26 19:30 | NUR ---
ONGOING 2ND UNIT OF PRBC. NO FURTHER BLOODY STOOLS NOTED AT THIS TIME. ATTEMPTED TO INSERT PIV-WITH POOR VENOUS ACCESS. MIDLINE PER .
--- NOTE | 2018-12-26 19:50 | NUR ---
RN NOTES RECEIVED PT AWAKE ALERT ORIENTED X 3 ON BED WITH ONGOING 2 UNIT PRBC / BLOOD TRANSFUSION. NO ACUTE RESPIRATORY DISTRESS. DENIES PAIN OR ABDOMINAL PAIN. WITH O2 2LPM VIA NC. AFEBRILE. VSS. PT ABLE TO AMBULATES. NPO AT THIS TIME. IV SITE ON RAC G 18 INTACT AND PATENT.. MIDLINE ON RIGHT UPPER ARM JUST PLACED AT THI S TIME. NO ACTIVE BLEEDING PRESENT. KEPT PT CLEAN AND DRY. CALL LIGHT INSTRUCTED TO USED FOR ASSISTANCE EVEN IF IT FEELS HE CAN DO THINGS ON HIS OWN. BED LOCKED AND PLACED IN LOWEST POSSIBLE POSITION, BED ALARM ON. WILL CLOSELY MONITOR.
--- NOTE | 2018-12-26 21:35 | NUR ---
RN NOTES DR. SNEED CALLED WITH ORDER TO TRANSFER TO HIGHER LEVEL OF CARE WHO TAKES CARE FOR ANGIOGRAM IR . AND WITH ORDER TO DO BLOOD SUGAR CHECK TO PATIENT NOTED AND CARRIED OUT.
--- NOTE | 2018-12-26 21:40 | NUR ---
RN NOTES SECOND UNITS OF PRBC FINISHED. VSS TEMP 98.4, BP 113/66 HR 85 SATING 100% RESP 17. NO CHANGE OF MENTAL STATUS. PT ASLEEP AT THIS TIME.
--- NOTE | 2018-12-26 22:45 | NUR ---
RN NOTES PATIENT WENT TO THE BATHROOM INFORMED TO NOT FLUSHED THE TOILET BUT ACCIDENTALLY FORGOT AND FLUSHED THE TOILET BOWL TO CHECK THE STOOL , NO BLOODY STOOL PER PATIENT. PT BACK TO BED AND DRAWN BLOOD FROM THE MIDLINE WITH GOOD BLOOD RETURN. WAITING FOR THE RESULT.
[2018-12-26 22:54] LABS: HEMOGLOBIN 7.9 g/dL (13.5-17.5)
[2018-12-26] MEDS: IV D5/0.45 NACL 1,000 ML IV PRN (23:10)
[2018-12-26] MEDS: BLOOD SUGAR DIAGNOSTIC 1 EACH STRIP IN SCH (23:23)
[2018-12-27] VITALS (18 sets, daily range): BP systolic 90–116; BP diastolic 45–69
[2018-12-27 04:59] LABS: BASOPHILS # (AUTO) 0.1 /CMM (0.0-0.2); BASOPHILS % (AUTO) 0.6 % (0.0-2.0); EOSINOPHILS % (AUTO) 0.8 % (0.0-6.0); HEMATOCRIT 21 % (39-51); HEMOGLOBIN 7.2 g/dL (13.5-17.5); LYMPHOCYTES # (AUTO) 2.5 /CMM (0.8-4.8); LYMPHOCYTES % (AUTO) 28.6 % (20.0-44.0); MEAN CORPUSCULAR HGB CONC 35 g/dl (31.0-36.0); MEAN CORPUSCULAR VOLUME 89 fL (80-96); MONOCYTES # (AUTO) 0.6 /CMM (0.1-1.30); MONOCYTES % (AUTO) 6.3 % (2.0-12.0); NEUTROPHILS # (AUTO) 5.6 /CMM (1.8-8.9); NEUTROPHILS % (AUTO) 63.7 % (43.0-81.0); PLATELET COUNT (AUTO) 123 /CMM (150-450); RED BLOOD CELL COUNT(AUTO) 2.33 MIL/uL (4.5-6.0); WHITE BLOOD COUNT (AUTO) 8.7 K/uL (4.3-11.0)
[2018-12-27 05:13] LABS: ALBUMIN 2.3 g/dL (3.4-5.0); BILIRUBIN,TOTAL 1.1 mg/dL (0.2-1.0); CALCIUM, SERUM 7.2 mg/dL (8.5-10.1); CREATININE 0.9 mg/dL (0.6-1.3); MAGNESIUM 1.8 mg/dL (1.8-2.4); POTASSIUM 3.9 mmol/L (3.5-5.1); TOTAL PROTEIN, SERUM 4.3 g/dL (6.4-8.2)
[2018-12-27] MEDS: BLOOD SUGAR DIAGNOSTIC 1 EACH STRIP IN SCH ×2 (06:53→11:16)
--- NOTE | 2018-12-27 07:00 | NUR ---
RN NOTES PATIENT ASLEEP WELL NO EPISODE OF BLOODY STOOL THROUGHOUT THE SHIFT. LATEST HGB 7.[address] VILLAVICENCIO WITH ORDER TO GIVE 1 UNIT OF PRBC NOTED AND CARRIED OUT ORDER. KEPT PT CLEAN AND DRY. BED ALARMED ON PLACED IN LOWEST POSSIBLE POSITION. ENDORSED CONTINUITY OF CARE TO AM NURSE.
[2018-12-27] MEDS ORDERED: IV D5/0.45 NACL 1,000 ML IV PRN (07:17)
[2018-12-27] MEDS: NEXIUM 40 MG VIAL IV SCH (08:13)
--- NOTE | 2018-12-27 10:25 | NUR ---
RN NOTE 0715: Received patient awake, A/Ox3. Tolerated room air, VSS. No active bleeding noted at this time. Reported x1BM form last shift, no bleeding, per report. CINDY midline intact, PIV RAC intact. IVF ongoing as ordered. 0730: S/E by Dr. Lechuga, with order to decrease IVF rate to 40mL/hr, carried out. 0745: called via phone, made aware re: blood transfusion to be given today, following up re: the transfer, no update yet. 0900: S/E by Dr. Morris, following up re: the transfer, will F/U with the casework specialist. 0930: CN from meeting, per CM, still no other hospital yet, still following up. 1000: 1 unit PRBC ongoing, tolerated, no any adverse reactions noted. will continue monitoring. 1020: and daughter at bedside. Still no update from , sent family to office.
--- NOTE | 2018-12-27 12:36 | NUR ---
RN NOTE Called [facility] # , spoke with Carol, report given. Done with BT, no any adverse reactions noted. and daughter at bedside, aware re: the transfer and picker tender helper time @ 1400. Noted with one time discharge of minimal bright red blood from rectum. CINDY midline intact. VSS at this time. Obtained order of images in CD, awaiting from radio.
[2018-12-27 13:40] LABS: HEMOGLOBIN 8.3 g/dL (13.5-17.5)
--- NOTE | 2018-12-27 14:25 | NUR ---
RN NOTE [place] [facility] with 2 personnels came, report given. Midline and PIV intact. VSS. No another episode of active bleeding for now. at bedside. Kept clean, warm and dry. Needs attended.
== END 2018-12-27 14:31 | disposition short-term general hospital (02) | DRG 392 ==
LOC: ER 18:24 → TELE 21:36 → ICU 12-26 17:25
PROVIDERS: ADMIT Student in an Organized Health Care Education/Training Program; ATTEND Internal Medicine Nephrology
PROC: 30233N1 Transfusion of Nonautologous Red Blood Cells into Peripheral Vein, Percutaneous Approach (ICD-10-PCS; principal; 2018-12-26)
PROC: 05HB33Z Insertion of Infusion Device into Right Basilic Vein, Percutaneous Approach (ICD-10-PCS; 2018-12-26)
DX: K57.32 Diverticulitis of large intestine without perforation or abscess without bleeding (principal); D62 Acute posthemorrhagic anemia; D64.9 Anemia, unspecified; E11.9 Type 2 diabetes mellitus without complications; F32.9 Major depressive disorder, single episode, unspecified; Z79.899 Other long term (current) drug therapy; D69.6 Thrombocytopenia, unspecified; E83.39 Other disorders of phosphorus metabolism; F03.90 Unspecified dementia, unspecified severity, without behavioral disturbance, psychotic disturbance, mood disturbance, and anxiety; Z79.84 Long term (current) use of oral hypoglycemic drugs; Z87.11 Personal history of peptic ulcer disease; K21.0 Gastro-esophageal reflux disease with esophagitis; K57.90 Diverticulosis of intestine, part unspecified, without perforation or abscess without bleeding; K64.8 Other hemorrhoids; K76.89 Other specified diseases of liver; D17.9 Benign lipomatous neoplasm, unspecified
CPT/HCPCS: 36415; 70450-TC; 74178; 80048-TC; 80053-TC; 82962-TC; 83735-TC; 84100-TC; 85025-TC; 85027-TC; 85730-TC; 86850-TC; 86921-TC; 87081-TC; A9563; C9113; G0378; J2270; J2405; J3490; J7030; J7050; J7060; P9016-BL

== ENCOUNTER 2021-10-21 19:29 | Inpatient (IN) | payer OTHER ==
[~2021-10-21] VITALS: Ht 170.2 cm; Wt 66.7 kg
--- NOTE | 2021-10-21 19:32 | NUR ---
[id number] FROM HOME C/O "STROKE LIKE SYMPTOMS, DRAGGING R LEG AND LEANING TO RIGHT. -FACIAL DROOP NOTED LWKT: 5:15PM. PER PT'S BASELINE IS AMBULATORY. PT A/OX1. TOLERATING R/A WELL WITH NO SOB. GEN WEAKNESS NOTED. CONNECTED PT TO POX AND MONITOR. SAFETY MEASURES IN PLACE.
--- NOTE | 2021-10-21 19:33 | NUR ---
ALBERENE STONE SETTER AT PT'S BEDSIDE. BLOOD AND COVID ANTIGEN SWAB COLLECTED AND SENT TO LAB
--- NOTE | 2021-10-21 19:34 | NUR ---
PT TAKEN TO CT VIA RACHEL
[2021-10-21] MEDS ORDERED: IOHEXOL-350 100 ML VIAL IV ONE (19:36)
[2021-10-21] MEDS ORDERED: CT SWABBABLE VALVE TRANS SET 1 EA INFUS.SET MC ONE (19:36)
--- NOTE | 2021-10-21 19:36 | NUR ---
[facility] SCORE: 11 BUE & BLE FALLS < 10 SECONDS NO FACIAL DROOP OR SLURRED SPEECH NOTED
--- NOTE | 2021-10-21 19:36 | NUR ---
Note undkemar in EDM - 10/21/21 at 2154 by SHEA [id number] FROM HOME C/O "STROKE LIKE SYMPTOMS, DRAGGING R LEG AND LEANING TO RIGHT. -FACIAL DROOP NOTED LWKT: 5:15PM. PER PT'S BASELINE IS AMBULATORY. PT A/OX1. TOLERATING R/A WELL WITH NO SOB. GEN WEAKNESS NOTED. CONNECTED PT TO POX AND MONITOR. SAFETY MEASURES IN PLACE.
[2021-10-21] MEDS ORDERED: IV NS 0.9% 250 ML IV ONE (19:37)
--- NOTE | 2021-10-21 19:58 | NUR ---
PT RETURNED TO ER BED 12
--- NOTE | 2021-10-21 20:10 | NUR ---
PT ON TELE NEURO HEALTH CALL WITH DR. JOYNER NEUROLOGIST; NO ORDER FOR TPA
[2021-10-21 20:14] LABS: BASOPHILS % (AUTO) 1.1 % (0.0-2.0); EOSINOPHILS % (AUTO) 1.2 % (0.0-6.0); HEMATOCRIT 32 % (39-51); HEMOGLOBIN 10.5 g/dL (13.5-17.5); LYMPHOCYTES # (AUTO) 0.9 K/uL (0.8-4.8); MEAN CORPUSCULAR HGB CONC 33 g/dl (31.0-36.0); MEAN CORPUSCULAR VOLUME 83 fL (80-96); MONOCYTES # (AUTO) 0.6 K/uL (0.1-1.30); MONOCYTES % (AUTO) 20.3 % (2.0-12.0); NEUTROPHILS # (AUTO) 1.5 K/uL (1.8-8.9); NEUTROPHILS % (AUTO) 48.4 % (43.0-81.0); PLATELET COUNT (AUTO) 167 K/uL (150-450); RED BLOOD CELL COUNT(AUTO) 3.79 MIL/uL (4.5-6.0); WHITE BLOOD COUNT (AUTO) 3.2 K/uL (4.3-11.0)
[2021-10-21 20:24] LABS: CALCIUM, SERUM 8.4 mg/dL (8.5-10.1); CARBON DIOXIDE 26 mmol/L (21-32); CHLORIDE 102 mmol/L (98-107); GLUCOSE 113 mg/dL (74-106); POTASSIUM 3.7 mmol/L (3.5-5.1); SODIUM SERUM 137 mmol/L (136-145); UREA NITROGEN, BLOOD 10 mg/dL (7-18)
[2021-10-21 20:39] LABS: LYMPHOCYTES % (MANUAL) 30 % (16-48); MONOCYTES % (MANUAL) 20 % (0-11.0); NEUTROPHILS % (MANUAL) 50 (42-76)
[2021-10-21] MEDS ORDERED: DIVA-78 PO (21:20)
[2021-10-21] MEDS ORDERED: IBUP-1953 PO (21:20)
[2021-10-21] MEDS ORDERED: MEMA10TA PO (21:20)
[2021-10-21] MEDS ORDERED: MIRT-91 PO (21:20)
[2021-10-21] MEDS ORDERED: ALPR0.255 PO (21:20)
[2021-10-21] MEDS ORDERED: ASPIRIN 300 MG/SUPP.RECT RC ONE ×2 (21:30→21:59)
[2021-10-21] MEDS ORDERED: ENOXAPARIN SODIUM 40 MG/0.4 ML DISP.SYRIN SQ ONE (23:44)
[2021-10-21] MEDS: ENOXAPARIN SODIUM 40 MG/0.4 ML DISP.SYRIN SQ SCH (23:47)
--- NOTE | 2021-10-22 00:10 | NUR ---
ASSIGNED TO 108
[2021-10-22 00:15] VITALS: BP 139/70
--- NOTE | 2021-10-22 00:15 | NUR ---
RN OPENING NOTE RECEIVED PT AND REPORT FROM HUY MENDEZ ER NURSE VIA RACHEL. PT IS A/O X1. DX GVA/COVID 19 PT IS CONFUSED AND RESTLESS.ON RIGHT SIDED WEAKNESS ON ROOM AIR WITH NO S/SX OF ACUTE DISTRESS NOTED AT THIS TIME. NO SOB AND EVEN, UNLABORED BREATHING NOTED. O2 SAT IS 98%. BP 129/70HR 84 RR 18 TEMP 98.6 IV ACCESS NOTED AT RIGHT AC, #18g. PATENT WITH NO SIGNS OF INFILTRATION. PT IS AFEBRILE. SKIN IS INTACT . KEPT HOB ELEVATED. KEPT PT CLEAN AND DRY. ALL SAFETY MEASURES IN PLACE: BED LOCKED IN LOWEST POSITION. BED ALARM ON. SR UP X3. CALL LIGHT WITHIN REACH. WILL CONTINUE TO MONITOR FOR ANY CHANGES. LOUIS MONEY GIVEN TO TOY TRAINS AND ACCESSORIES SALESPERSON DIANNA BENITEZ FOR KEEP SAFING PTS ON BILATERAL WRIST RESTRAINT TO PREVENT FROM PULLING INVASIVE TUBING WILL CONTINUE TO MONITOR PTS.
--- NOTE | 2021-10-22 00:26 | NUR ---
ADLS DONE; LARGE INCONTINENT URINE NOTED. PT KEPT CLEAN AND DRY.
--- NOTE | 2021-10-22 00:42 | NUR ---
REPORT GIVEN TOP VANESSA LEE FOR MARCY
--- NOTE | 2021-10-22 00:54 | NUR ---
TELE PT TRANSFERRED TO 108 VIA ACLS PROTOCOL.
[2021-10-22] MEDS ORDERED: *INSULIN REGULAR(HUMULIN R)HUM 100 UNIT/ML VIAL SQ PRN (01:00)
[2021-10-22] MEDS ORDERED: DEXTROSE 50%-WATER 50 ML DISP.SYRIN IV PRN (01:00)
[2021-10-22] MEDS ORDERED: INSULIN REGULAR, HUMAN 100 UNIT/ML 3 ML VIAL SQ PRN (01:00)
[2021-10-22 04:00] VITALS: BP 125/65
[2021-10-22] MEDS ORDERED: AZITHROMYCIN 500 MG VIAL ONE (04:15)
[2021-10-22] MEDS ORDERED: CEFTRIAXONE 1 G VIAL ONE (04:43)
[2021-10-22] MEDS: CEFTRIAXONE 1 G in IV D5W 50 ML IV SCH (05:01)
[2021-10-22] MEDS: AZITHROMYCIN 500 MG in IV D5W 250 ML IV SCH (05:14)
--- NOTE | 2021-10-22 05:51 | NUR ---
TEXT DR. MANCIA FOR MRI APPROVAL.
--- NOTE | 2021-10-22 07:30 | NUR ---
tele rnnotes endorse to rn day shift [place] for continuity of care
[2021-10-22 08:00] VITALS: BP 141/63
--- NOTE | 2021-10-22 08:07 | NUR ---
RN NOTE PT RECEIVED IN BED. RESPONSIVE TO STIMULI.A/O X 1. CONTINUES IN ROOM AIR. NOT IN DISTRESS. WITH BILATERAL SOFT HAND RESTRAINTS, NO CIRCULATORY COMPLICATIONS NOTED. SAFETY MEASURES FOLLOWED. WILL CONTINUE TO MONITOR. RAC G18 IN PLACE AND PATENT.
[2021-10-22] MEDS ORDERED: DIVALPROEX SODIUM 500 MG TABLET.DR PO SCH (09:00)
[2021-10-22] MEDS: BLOOD SUGAR DIAGNOSTIC 1 EACH STRIP VI SCH ×4 (09:29→22:14)
[2021-10-22] MEDS: PANTOPRAZOLE 40 MG TABLET.DR PO SCH (09:29)
[2021-10-22] MEDS: MEMANTINE HCL 5 MG TABLET PO SCH ×2 (09:29→17:38)
[2021-10-22] MEDS: ASPIRIN EC 325 MG TABLET.DR PO SCH (09:29)
[2021-10-22 12:00] VITALS: BP 139/66
[2021-10-22] MEDS: VALPROIC ACID 250 MG/5 ML UDC PO SCH ×2 (12:10→17:38)
[2021-10-22 16:00] VITALS: BP 137/69
--- NOTE | 2021-10-22 16:59 | NUR ---
RN NOTE PT PICKED UP BY 2 MRI STAFF. PT IN GOOD CONDITION. NOT IN RESPI DISTRESS.
--- NOTE | 2021-10-22 18:47 | NUR ---
RN NOTE PT RESTING IN BED. AWAKE ALERT AND RESPONSIVE TO STIMULI.A/O X 1. CONTINUES IN ROOM AIR. NOT IN DISTRESS. WITH BILATERAL SOFT HAND RESTRAINTS, NO CIRCULATORY COMPLICATIONS NOTED. SAFETY MEASURES FOLLOWED. ALL DUE MEDS TAKEN, NEEDS ATTENDED. AM/PM CARE GIVEN. WILL CONTINUE TO MONITOR. RAC G18 IN PLACE AND PATENT.
[2021-10-22 20:00] VITALS: BP 129/62
[2021-10-22] MEDS: SIMVASTATIN 20 MG TABLET PO SCH (21:01)
[2021-10-22] MEDS: DONEPEZIL 5 MG TABLET PO SCH (21:01)
[2021-10-22] MEDS: ENOXAPARIN SODIUM 40 MG/0.4 ML DISP.SYRIN SQ SCH (21:03)
--- NOTE | 2021-10-22 21:45 | NUR ---
jr. systems administrator Opening Note Pt received in bed awake, A&O x1; pt only able to correctly state first name but not last name; not able to state his or where he is. Pt on RA with O2sat currently 98%; no s/s of resp distress, no SOB, non-labored and equal breathing. If O2sat <92%, will be providing oxygen supplementation as endorsed to me [facility]. Pt attached to external monitor currently SR with HR 81. Pt noted to have bilateral soft wrist restraints; no impaired circulation or skin integrity noted; will continue to monitor. RAC 18G intact and patent; no s/s of infiltration. Bed in lowest position, call light within reach, side rails up x3. Will continue to monitor throughout the night.
[2021-10-22] MEDS ORDERED: SIMVASTATIN 40 MG TABLET PO SCH (22:00)
[2021-10-23] VITALS: BP 123/57
[2021-10-23] MEDS: AZITHROMYCIN 500 MG in IV D5W 250 ML IV SCH (02:10)
[2021-10-23] MEDS: CEFTRIAXONE 1 G in IV D5W 50 ML IV SCH (03:17)
[2021-10-23 04:00] VITALS: BP 136/69
--- NOTE | 2021-10-23 06:46 | NUR ---
inventory management specialist Closing Note Pt remains in bed awake, A&O x1; slept intermittently throughout the night. Pt remains on RA with O2sat stable at 98%; no s/s of resp distress, no SOB, non-labored and equal breathing. O2sat did not drop to less than 92% during shift. Pt on external monitor SR with HR 81. Pt remains on bilateral soft wrist restraints; no impaired circulation or skin integrity noted; provided release of restraints, hygiene, and fluids. Pt had period of agitation when cleaning pt; pt was attempting to punch and kick, mainly on left side of body. RAC 18G intact and patent; NS TKO at 5 ml/hr. Bed in lowest position, call light within reach, side rails up x3. Will endorse to dayshift nurse to continue care.
[2021-10-23 06:59] LABS: BASOPHILS % (AUTO) 0.7 % (0.0-2.0); EOSINOPHILS % (AUTO) 3.2 % (0.0-6.0); HEMATOCRIT 33 % (39-51); HEMOGLOBIN 11.1 g/dL (13.5-17.5); LYMPHOCYTES # (AUTO) 1.2 K/uL (0.8-4.8); LYMPHOCYTES % (AUTO) 22.8 % (20.0-44.0); MEAN CORPUSCULAR HGB CONC 34 g/dl (31.0-36.0); MEAN CORPUSCULAR VOLUME 82 fL (80-96); MONOCYTES # (AUTO) 0.5 K/uL (0.1-1.30); MONOCYTES % (AUTO) 9.9 % (2.0-12.0); NEUTROPHILS # (AUTO) 3.3 K/uL (1.8-8.9); NEUTROPHILS % (AUTO) 63.4 % (43.0-81.0); PLATELET COUNT (AUTO) 170 K/uL (150-450); RED BLOOD CELL COUNT(AUTO) 3.99 MIL/uL (4.5-6.0); WHITE BLOOD COUNT (AUTO) 5.2 K/uL (4.3-11.0)
[2021-10-23 08:00] VITALS: BP 154/73
[2021-10-23 08:13] LABS: CALCIUM, SERUM 8.5 mg/dL (8.5-10.1); CREATININE 0.8 mg/dL (0.6-1.3); POTASSIUM 3.3 mmol/L (3.5-5.1)
[2021-10-23] MEDS: BLOOD SUGAR DIAGNOSTIC 1 EACH STRIP VI SCH ×4 (08:47→21:15)
[2021-10-23] MEDS: ASPIRIN EC 325 MG TABLET.DR PO SCH (08:47)
[2021-10-23] MEDS: VALPROIC ACID 250 MG/5 ML UDC PO SCH ×3 (08:47→16:37)
[2021-10-23] MEDS: PANTOPRAZOLE 40 MG TABLET.DR PO SCH (08:47)
[2021-10-23] MEDS: MEMANTINE HCL 5 MG TABLET PO SCH ×2 (08:48→16:37)
[2021-10-23] MEDS ORDERED: POTASSIUM CHLORIDE 20 MEQ TAB.PRT.SR PO ONE (09:30)
[2021-10-23 12:00] VITALS: BP 130/73
[2021-10-23 16:00] VITALS: BP 137/71
--- NOTE | 2021-10-23 19:13 | NUR ---
RN NOTE PT'S STATED SHE DOES NOT WANT TO PREFER PT TO BE TRANSFERRED TO SNF OR ACUTE REHAB. WILL ENDORSE TO NEXT SHIFT RN.
--- NOTE | 2021-10-23 19:30 | NUR ---
electric distribution checker Opening Note Received pt in bed awake, A/O x1; pt is able to answer some questions correctly with some episodes of disorientation noted. On RA, tolerating well, sating at 97%. No s/sx of acute respiratory distress noted at this time, no SOB, non-labored and equal breathing noted. IV access in place at RAC #18g patent and intact no s/s of infiltration at this time, flushes well. Pt has bilateral soft wrist restraints with no impaired circulation or skin integrity noted; will continue to monitor. All safety measures in place: bed in lowest position and locked, bed alarm on. Call light within reach, side rails up x3. Will continue to monitor the pt closely throughout the night.
[2021-10-23 20:00] VITALS: BP 129/70
[2021-10-23] MEDS: DONEPEZIL 5 MG TABLET PO SCH (21:05)
[2021-10-23] MEDS: SIMVASTATIN 20 MG TABLET PO SCH (21:05)
[2021-10-23] MEDS: ENOXAPARIN SODIUM 40 MG/0.4 ML DISP.SYRIN SQ SCH (21:08)
[2021-10-24] VITALS: BP 136/68
[2021-10-24] MEDS: AZITHROMYCIN 500 MG in IV D5W 250 ML IV SCH (01:02)
[2021-10-24] MEDS: CEFTRIAXONE 1 G in IV D5W 50 ML IV SCH (02:51)
[2021-10-24 04:00] VITALS: BP 118/64
[2021-10-24 06:24] LABS: CALCIUM, SERUM 8.4 mg/dL (8.5-10.1); CREATININE 0.7 mg/dL (0.6-1.3); POTASSIUM 3.6 mmol/L (3.5-5.1)
--- NOTE | 2021-10-24 06:59 | NUR ---
reforestation worker Closing Note No significant change throughout the shift. Pt in bed, A/O x1; On RA, tolerating well, sating at 97%. No s/sx of acute respiratory distress. IV access in place at RAC #18g patent and intact with no s/sx of infiltration at this time, flushes well. Pt has bilateral soft wrist restraints with no impaired circulation or skin integrity noted. All due meds given. Needs attended to. Kept pt clean and dry. All safety measures implemented: bed in lowest position and locked, bed alarm on. Call light within reach, side rails up x3. Will endorse to AM shift nurse for MARC[facility].
--- NOTE | 2021-10-24 07:30 | NUR ---
PT RECEIVED RESTING COMFORTABLY IN BED. NO S/S OR C/O PAIN OR DISTRESS NOTED. SIDE RAILS UP X2, CALL LIGHT LEFT WITHIN REACH. WILL CONTINUE PLAN OF CARE.
[2021-10-24 08:00] VITALS: BP 109/64
[2021-10-24] MEDS: BLOOD SUGAR DIAGNOSTIC 1 EACH STRIP VI SCH ×4 (09:45→22:52)
[2021-10-24] MEDS: ASPIRIN EC 325 MG TABLET.DR PO SCH (09:45)
[2021-10-24] MEDS: VALPROIC ACID 250 MG/5 ML UDC PO SCH ×3 (09:45→17:21)
[2021-10-24] MEDS: PANTOPRAZOLE 40 MG TABLET.DR PO SCH (09:45)
[2021-10-24] MEDS: MEMANTINE HCL 5 MG TABLET PO SCH ×2 (09:45→17:21)
[2021-10-24 12:00] VITALS: BP 133/65
[2021-10-24] MEDS ORDERED: ENOX40DI SQ (12:17)
--- NOTE | 2021-10-24 12:21 | NUR ---
SS Note: SS received consult for stroke. Pt. is a 71-year-old male that presents to the ER for stroke like symptoms. Pt. is COVID positive. Pt. is alert and oriented x1, SW is unable to interview pt. Per home health care case manager note, pt. has a and a caregiver who comes daily. Pt.s refuses SNF at this time and would prefer pt. to go home with home health upon discharge. will be able to provide transportation.
[2021-10-24 16:00] VITALS: BP 127/63
[2021-10-24] MEDS: ENOXAPARIN SODIUM 40 MG/0.4 ML DISP.SYRIN SQ SCH (17:33)
--- NOTE | 2021-10-24 19:24 | NUR ---
CHANGE OF SHIFT REPORT PT RESTING COMFORTABLY IN BED. NO S/S OR C/O PAIN OR DISTRESS NOTED. SIDE RAILS UP X2, CALL LIGHT LEFT WITHIN REACH. PT KEPT CLEAN, DRY, AND COMFORTABLE. NO SIGNIFICANT CHANGES SINCE PREVIOUS SHIFT. REPORT GIVEN TO CECILIA MENDEZ.
[2021-10-24 20:00] VITALS: BP 131/66
--- NOTE | 2021-10-24 20:22 | NUR ---
mattress maker Opening Note Pt received in bed awake, A&O x1; pt only able to correctly state first name and last name. Pt on RA with O2sat currently 98%; no s/s of resp distress, no SOB, non-labored and equal breathing. Noted that if O2sat <92%, will be providing oxygen supplementation. Pt on external monitor currently SR with HR 65 Pt noted to have bilateral soft wrist restraints; no impaired circulation or skin integrity noted; will continue to monitor. RAC 18G intact and patent with NS TKO. Bed in lowest position, call light within reach, side rails up x3. Will continue to monitor throughout the night.
[2021-10-24] MEDS: DONEPEZIL 5 MG TABLET PO SCH (22:20)
[2021-10-24] MEDS: SIMVASTATIN 20 MG TABLET PO SCH (22:20)
[2021-10-25] VITALS: BP 124/63
[2021-10-25 04:00] VITALS: BP 135/71
--- NOTE | 2021-10-25 06:48 | NUR ---
tree specialist Closing Note Pt remains in bed A&O x1; slept intermittently throughout the night. Pt mostly quiet during night, no attempts in getting out of bed or pulling on lines; during bed bath pt was slightly aggressive but was able to calm down shortly. Pt noted to be able to move right side of body more compared to before. Pt on RA with O2sat ranging from 91%-98%; no s/s of resp distress, no SOB, non-labored and equal breathing. Pt on external monitor SR with HR 64. Pt remains on bilateral soft wrist restraints; no impaired circulation or skin integrity noted; provided release of restraints, hygiene, and fluids. RAC 18G intact and patent. Bed in lowest position, call light within reach, side rails up x3. Will endorse to dayshift nurse to continue care.
--- NOTE | 2021-10-25 07:38 | NUR ---
RN OPENING NOTE- PT RESTING COMFORTABLY IN BED. ASLEEP, EASILY AWAKENED NO S/S OR C/O PAIN OR DISTRESS NOTED. SIDE RAILS UP X2, CALL LIGHT LEFT WITHIN REACH. PT KEPT CLEAN, DRY, AND COMFORTABLE. MONITOR / ASSIST
[2021-10-25] MEDS: BLOOD SUGAR DIAGNOSTIC 1 EACH STRIP VI SCH (07:55)
[2021-10-25 08:00] VITALS: BP 101/59
[2021-10-25] MEDS: PANTOPRAZOLE 40 MG TABLET.DR PO SCH (08:01)
[2021-10-25] MEDS: ASPIRIN EC 325 MG TABLET.DR PO SCH (08:35)
[2021-10-25] MEDS: VALPROIC ACID 250 MG/5 ML UDC PO SCH (08:35)
[2021-10-25] MEDS: MEMANTINE HCL 5 MG TABLET PO SCH (08:35)
[2021-10-25] MEDS ORDERED: AZITHROMYCIN 250 MG TABLET PO SCH (09:00)
[2021-10-25] MEDS: ENOXAPARIN SODIUM 40 MG/0.4 ML DISP.SYRIN SQ SCH (11:22)
--- NOTE | 2021-10-25 11:45 | NUR ---
RN DC NOTE- PT DC AT THIS TIME TO HOME W SPOUSE . VS STABLE, ID WRISTBAND REMOVED AND IV SITE DC'D. TOLERATED WELL. DC INSTRUCTIONS GIVEN TO SPOUSE AND VERBALIZED UNDERSTANDING. ESCORTED AND ASSISTED TO CAR BY THIS RN
== END 2021-10-25 12:14 | disposition home health service (06) | DRG 69 ==
LOC: ER 19:33 → TELE 22:45 → TELE1 10-22 00:22
PROVIDERS: ADMIT Student in an Organized Health Care Education/Training Program; ATTEND Nurse Practitioner Acute Care
DX: G45.9 Transient cerebral ischemic attack, unspecified (principal); U07.1 COVID-19; G93.49 Other encephalopathy; I69.851 Hemiplegia and hemiparesis following other cerebrovascular disease affecting right dominant side; K57.90 Diverticulosis of intestine, part unspecified, without perforation or abscess without bleeding; G30.9 Alzheimer's disease, unspecified; F02.80 Dementia in other diseases classified elsewhere, unspecified severity, without behavioral disturbance, psychotic disturbance, mood disturbance, and anxiety; E11.9 Type 2 diabetes mellitus without complications; D64.9 Anemia, unspecified; D70.9 Neutropenia, unspecified; E87.6 Hypokalemia; F32.A Depression, unspecified; Z79.84 Long term (current) use of oral hypoglycemic drugs; Z79.899 Other long term (current) drug therapy; R29.715 NIHSS score 15; R53.1 Weakness; E04.1 Nontoxic single thyroid nodule; R29.810 Facial weakness
CPT/HCPCS: 36415; 70450-TC; 70496-TC; 70498-TC; 70551-TC; 71045-TC; 76536-TC; 80048-TC; 82962-TC; 84484-TC; 85025-TC; 85378-TC; 85730-TC; 86140-TC; 87040-TC; 92526; 92611-TC; 93307-TC; 97116-TC; 97530-TC; C9803; G0378; J0456; J0696; J1650; J1815; J7050; J7060; Q9967